=== PATIENT | male | born 1980 | race Caucasian/White ===

== ENCOUNTER 2017-10-31 12:35 | Emergency (ER) | payer BC ==
[~2017-10-31] VITALS: Ht 182.9 cm; Wt 136.1 kg
[~2017-10-31 12:35] MED LIST: MOBIC7.5 MG PO; PRILOSEC20 MG PO; VENTOLIN HFA 1818 GM INH; ZPAK PO
[2017-10-31 13:03] LABS: ABSOLUTE BASOPHILS 0.1 thou/uL (0.0-0.2); ABSOLUTE EOSINOPHILS 0.4 thou/uL (0.0-0.7); ABSOLUTE LYMPHOCYTES 3.3 thou/uL (0.8-5.3); ABSOLUTE MONOCYTES 0.7 thou/uL (0.0-1.2); ABSOLUTE NEUTROPHILS 5.8 thou/uL (1.6-8.1); BASOPHILS 0.8 %; EOSINOPHILS 4.1 %; HEMATOCRIT 43.9 % (42.0-52.0); HEMOGLOBIN 15.2 gm/dL (14.0-18.0); LYMPHOCYTES 31.9 %; MCH 32.8 pg (26.0-34.0); MCHC 34.5 g/dL (28.0-37.0); MONOCYTES 6.6 %; MPV 8.2 fl. (7.2-11.1); NUCLEATED RBCS 0 /100WBC; PLATELET COUNT* 255 thou/uL (150-400); POLYS 56.6 %; RBC 4.62 mil/uL (4.50-6.00); WBC 10.2 thou/uL (4.0-11.0)
[2017-10-31 13:19] LABS: CREATININE 0.9 mg/dL (0.6-1.3); POTASSIUM 3.9 mmol/L (3.5-5.1)
[2017-10-31 13:24] LABS: ALBUMIN 3.6 g/dL (3.4-5.0); TOTAL BILIRUBIN 0.4 mg/dL (<0.1-1.0); TOTAL PROTEIN 7.8 g/dL (6.4-8.2)
[2017-10-31] MEDS ORDERED: NORCO 5-325 TA1 EACH PO (14:24)
[2017-10-31] MEDS ORDERED: ZOFRAN ODT4 MG SUBLING (14:24)
[2017-10-31 14:29] VITALS: BP 117/76
== END 2017-10-31 14:30 | disposition home or self-care (01) ==
LOC: M.ERS 12:35
PROVIDERS: Family Medicine
DX: K42.9 Umbilical hernia without obstruction or gangrene (principal); I48.91 Unspecified atrial fibrillation; F17.210 Nicotine dependence, cigarettes, uncomplicated